=== PATIENT | male | born 1955 | race Caucasian/White ===

== ENCOUNTER 2019-11-11 09:48 | Emergency (ER) | payer OTHER ==
[~2019-11-11] VITALS: Ht 170.2 cm; Wt 81.6 kg
[2019-11-11 09:56] VITALS: BP 149/70
[2019-11-11] MEDS ORDERED: ONDANSETRON HCL/PF 4 MG/2 ML VIAL ONE (10:13)
[2019-11-11] MEDS ORDERED: CEFTRIAXONE 1GM BAG (ER ONLY) 0 ML IV ONE (10:13)
[2019-11-11] MEDS ORDERED: ACETAMINOPHEN ES 500 MG TABLET ONE (10:14)
[2019-11-11] MEDS ORDERED: CEFTRIAXONE 1GM BAG (ER ONLY) 1 GM/50 ML PIGGYBACK IV ONE (10:30)
[2019-11-11] MEDS ORDERED: IV NS 0.9% 1,000 ML BAG IV ONE (10:30)
[2019-11-11] MEDS ORDERED: ACETAMINOPHEN ES 500 MG TABLET PO ONE (10:30)
--- NOTE | 2019-11-11 10:30 | NUR ---
all orders cancelled as ordered by
--- NOTE | 2019-11-11 10:45 | NUR ---
Patient discharged to home in stable condition. Written and verbal after care instructions given. Patient verbalizes understanding of instruction.
== END 2019-11-11 10:45 | disposition home or self-care (01) ==
LOC: ER 09:53
DX: N41.9 Inflammatory disease of prostate, unspecified (principal); N39.0 Urinary tract infection, site not specified; I10 Essential (primary) hypertension; Z98.890 Other specified postprocedural states; Z60.2 Problems related to living alone
CPT/HCPCS: J0696; J2405; J7030

== ENCOUNTER 2019-11-13 05:18 | Emergency (ER) | payer OTHER ==
[~2019-11-13] VITALS: Ht 170.2 cm; Wt 95.3 kg
[2019-11-13 05:28] VITALS: BP 158/82
--- NOTE | 2019-11-13 05:36 | NUR ---
PT WAS BIBS TO THE ER FOR C/O URINARY FREQUENCY AND DYSURIA . PT REPORTED HE WAS SEEN AT [facility] ER , DIAGNOSED W/ UTI AND PROSTATITIS, GIVEN ATB AND DISCHARGED HOME. PT REPORTED HE WAS ABLE TO URINATE AN HOUR AGO. PT ALSO W/ C.O RECTAL PAIN DUE TO HEMORRHOID DESPITE USING PREPARATION H CREAM. PT AMBULATORY TO BED 4. VSS. WILL CONT TO MONITOR ,
--- NOTE | 2019-11-13 06:12 | NUR ---
Patient eloped from facility. ER MD notified.
[2019-11-13] MEDS ORDERED: TAMS-12 PO (09:06)
[2019-11-13] MEDS ORDERED: AMLO5TAB9 PO (09:06)
[2019-11-13] MEDS ORDERED: CYAN-51 PO (09:06)
[2019-11-13] MEDS ORDERED: CEPH500C2 PO (09:06)
[2019-11-13] MEDS ORDERED: CHOL20004 PO (09:06)
[2019-11-13] MEDS ORDERED: PARO20TA7 PO (09:06)
== END 2019-11-13 06:16 | disposition left against medical advice (07) ==
LOC: ER 05:18
DX: Z53.21 Procedure and treatment not carried out due to patient leaving prior to being seen by health care provider (principal); R10.30 Lower abdominal pain, unspecified; R30.0 Dysuria; R35.0 Frequency of micturition; I10 Essential (primary) hypertension; F32.9 Major depressive disorder, single episode, unspecified; Z98.890 Other specified postprocedural states

== ENCOUNTER 2019-11-13 08:43 | Emergency (ER) | payer OTHER ==
[~2019-11-13] VITALS: Ht 170.2 cm; Wt 94.8 kg
[2019-11-13 08:43] VITALS: BP 158/75
--- NOTE | 2019-11-13 09:01 | NUR ---
DR PIMENTEL AT BEDSIDE FOR EVAL
[2019-11-13] MEDS ORDERED: CHOL20004 PO (09:06)
[2019-11-13] MEDS ORDERED: CYAN-51 PO (09:06)
[2019-11-13] MEDS ORDERED: AMLO5TAB9 PO (09:06)
[2019-11-13] MEDS ORDERED: CEPH500C2 PO (09:06)
[2019-11-13] MEDS ORDERED: PARO20TA7 PO (09:06)
[2019-11-13] MEDS ORDERED: TAMS-12 PO (09:06)
--- NOTE | 2019-11-13 09:18 | NUR ---
PRESTON CATH INSERTED AND LEG BAG ATTACHED. DRAINING WELL.
--- NOTE | 2019-11-13 09:58 | NUR ---
Patient discharged to home in stable condition. Written and verbal after care instructions given. Patient verbalizes understanding of instruction.
[2019-11-13 10:03] LABS: APPEARANCE,URINE Clear (CLEAR); BILIRUBIN,URINE Negative (NEGATIVE); BLOOD, URINE Moderate Ery/uL (NEGATIVE); COLOR,URINE Yellow (YELLOW); KETONES,URINE Negative (NEGATIVE); LEUKOCYTE ESTERASE ,URINE Negative (NEGATIVE); NITRITE, URINE Negative (NEGATIVE); PH,URINE 5.5 (5.0-8.0); PROTEIN,URINE Negative (NEGATIVE); UGLUCOSE Negative (NEGATIVE); UROBILINOGEN,URINE 0.2 EU/dL (0.2)
[2019-11-13 10:18] LABS: RBC,URINE 21-50 /HPF (0-2)
[2019-11-13 10:19] LABS: BACTERIA,URINE None seen /HPF (None Seen); SQUAMOUS EPITHELIAL CELL,UR Few /HPF (None Seen); WBC,URINE 0-2 /HPF (0-3)
== END 2019-11-13 10:00 | disposition home or self-care (01) ==
LOC: ER 08:43
DX: R33.9 Retention of urine, unspecified (principal); I10 Essential (primary) hypertension; F32.9 Major depressive disorder, single episode, unspecified; N40.0 Benign prostatic hyperplasia without lower urinary tract symptoms; Z98.890 Other specified postprocedural states; Z60.2 Problems related to living alone; Z79.899 Other long term (current) drug therapy
CPT/HCPCS: 81000-TC; 87086-TC

== ENCOUNTER 2019-11-19 07:57 | Emergency (ER) | payer OTHER ==
[~2019-11-19] VITALS: Ht 170.2 cm; Wt 95.3 kg
[~2019-11-19 07:57] MED LIST: AMLO5TAB9 PO; CEPH500C2 PO; CHOL20004 PO; CYAN-51 PO; PARO20TA7 PO; TAMS-12 PO
--- NOTE | 2019-11-19 08:10 | NUR ---
[id number] HOME, UNABLE TO URINATE X 2 HOURS. F/C TAKEN OUT YESTERDAY. C/O 8/10 BLADDER PAIN. NO SOB. DENIES N/V. VS TAKEN. WARM BLANKET PLACED. WILL CONTINUE TO MONITOR.
--- NOTE | 2019-11-19 08:13 | NUR ---
INSERTED F/C WITH NO COMPLICATIONS, 800ML URINE OUT, CLEAR AND PALE YELLOW OUTPUT. PATIENT STATES HE FEELS RELIEF. WAITING TO BE SEEN BY MD.
--- NOTE | 2019-11-19 09:10 | NUR ---
PER MD PATIENT WILL GO HOME WITH PRESTON CATHETER AND PATIENT FOLLOW UP WITH HIS UROLOGIST. PER PATIENT HE WOULD LIKE TO GO HOME WITH ANTIBIOTICS, STATED LAST ANTIBIOTICS TAKEN DID NOT WORK FOR HIM. MADE AWARE.
--- NOTE | 2019-11-19 09:42 | NUR ---
PATIENT DISCHARGE WITH LEG BAG, DISCHARGE INSTRUCTIONS GIVEN. PATIENT IN STABLE CONDITION. AMBULATORY.
[2019-11-19 09:44] VITALS: BP 135/72
== END 2019-11-19 09:44 | disposition home or self-care (01) ==
LOC: ER 08:02
DX: R33.9 Retention of urine, unspecified (principal); I10 Essential (primary) hypertension; Z98.890 Other specified postprocedural states; Z60.2 Problems related to living alone; Z79.899 Other long term (current) drug therapy

== ENCOUNTER 2019-12-04 12:44 | Emergency (ER) | payer OTHER ==
[~2019-12-04] VITALS: Ht 170.2 cm; Wt 94.8 kg
[~2019-12-04 12:44] MED LIST changes: +CHOL200010 PO; -CHOL20004 PO
[2019-12-04 12:56] VITALS: BP 156/82
--- NOTE | 2019-12-04 14:22 | NUR ---
REMOVED PRESTON CATHETER PER DR. BAR'S ORDER, PT CLAUDETTE WELL. COVID19 TESTING DONE & SENT TO LAB.
== END 2019-12-04 14:25 | disposition home or self-care (01) ==
LOC: ER 12:47
DX: Z43.6 Encounter for attention to other artificial openings of urinary tract (principal); N40.0 Benign prostatic hyperplasia without lower urinary tract symptoms; I10 Essential (primary) hypertension; Z79.899 Other long term (current) drug therapy; F32.9 Major depressive disorder, single episode, unspecified; Z20.828 Contact with and (suspected) exposure to other viral communicable diseases
CPT/HCPCS: 99283; C9803; U0003

== ENCOUNTER 2019-12-05 03:54 | Emergency (ER) | payer OTHER ==
[~2019-12-05] VITALS: Ht 170.2 cm; Wt 94.8 kg
[2019-12-05 03:57] VITALS: BP 160/91
[2019-12-05] MEDS ORDERED: LIDOCAINE 2% JEL UROJET 10 ML MM ONE ×2 (04:08→04:30)
[2019-12-05 04:35] LABS: APPEARANCE,URINE SL CLOUDY (CLEAR); BILIRUBIN,URINE NEGATIVE (NEGATIVE); BLOOD, URINE MODERATE Ery/uL (NEGATIVE); COLOR,URINE YELLOW (YELLOW); KETONES,URINE 15 (NEGATIVE); LEUKOCYTE ESTERASE ,URINE LARGE (NEGATIVE); NITRITE, URINE POSITIVE (NEGATIVE); PROTEIN,URINE 100 mg/dl (NEGATIVE); UGLUCOSE NEGATIVE (NEGATIVE); UROBILINOGEN,URINE 0.2 EU/dL (0.2)
--- NOTE | 2019-12-05 04:44 | NUR ---
850ML URINE OUTPUT
[2019-12-05 04:49] LABS: BACTERIA,URINE Moderate /HPF (None Seen); SQUAMOUS EPITHELIAL CELL,UR Rare /HPF (None Seen); WBC,URINE TOO NUMEROUS TO COUN /HPF (0-3)
== END 2019-12-05 05:33 | disposition home or self-care (01) ==
LOC: ER 03:59
DX: N39.0 Urinary tract infection, site not specified (principal); R33.9 Retention of urine, unspecified; I10 Essential (primary) hypertension; Z98.890 Other specified postprocedural states; Z60.2 Problems related to living alone; Z79.899 Other long term (current) drug therapy
CPT/HCPCS: 51702; 81001; 87086; 99284; J3490; 81000-TC; 87186-TC

== ENCOUNTER 2019-12-12 05:16 | Emergency (ER) | payer OTHER ==
[~2019-12-12] VITALS: Ht 170.2 cm; Wt 90.7 kg
[2019-12-12] MEDS ORDERED: LIDOCAINE 2% JEL UROJET 10 ML MM ONE (05:23)
[2019-12-12 05:25] VITALS: BP 145/83
--- NOTE | 2019-12-12 05:30 | NUR ---
PATIENT CAME TO ER BED 7 C/O URINARY RETENTION. PATIENT STATES THAT HE WANTS A LEG BAG. AAOX4. NO SOB .BREATHING EVENLY AND UNLABORED ON ROOM AIR.
--- NOTE | 2019-12-12 05:36 | NUR ---
PRESTON CATHETER 16 FR INSERTED INTO THE PENIS.
[2019-12-12 05:57] LABS: APPEARANCE,URINE CLEAR (CLEAR); BILIRUBIN,URINE NEGATIVE (NEGATIVE); BLOOD, URINE SMALL Ery/uL (NEGATIVE); COLOR,URINE YELLOW (YELLOW); KETONES,URINE NEGATIVE (NEGATIVE); LEUKOCYTE ESTERASE ,URINE SMALL (NEGATIVE); NITRITE, URINE NEGATIVE (NEGATIVE); PROTEIN,URINE NEGATIVE (NEGATIVE); UGLUCOSE NEGATIVE (NEGATIVE); UROBILINOGEN,URINE 0.2 EU/dL (0.2)
--- NOTE | 2019-12-12 07:08 | NUR ---
PATIENT CHANGED INTO A LEG BAG. TOTAL AMOUNT OF URINE IN THE PRESTON CATHETER BAG 2L OF URINE
--- NOTE | 2019-12-12 07:08 | NUR ---
Patient discharged to home in stable condition. Written and verbal after care instructions given. Patient verbalizes understanding of instruction.
== END 2019-12-12 07:09 | disposition home or self-care (01) ==
LOC: ER 05:20
DX: R33.9 Retention of urine, unspecified (principal); I10 Essential (primary) hypertension; Z98.890 Other specified postprocedural states; Z60.2 Problems related to living alone; Z79.899 Other long term (current) drug therapy
CPT/HCPCS: 51702; 81001; 99284; J3490; 81000-TC

== ENCOUNTER 2022-11-24 03:51 | Emergency (ER) | payer MEDICARE, OTHER ==
[~2022-11-24] VITALS: Ht 175.3 cm; Wt 86.2 kg
[~2022-11-24 03:51] MED LIST changes: +AMLO-212 PO; -AMLO5TAB9 PO; +CIPR500T5 PO; +IBUP-1953 PO; +TYL2T PO
[2022-11-24] MEDS ORDERED: LIDOCAINE 2% JEL UROJET 10 ML MM ONE ×2 (03:55→04:00)
[2022-11-24 04:52] LABS: APPEARANCE,URINE CLEAR (CLEAR); BILIRUBIN,URINE NEGATIVE (NEGATIVE); BLOOD, URINE TRACE-INTA Ery/uL (NEGATIVE); COLOR,URINE YELLOW (YELLOW); KETONES,URINE NEGATIVE (NEGATIVE); LEUKOCYTE ESTERASE ,URINE NEGATIVE (NEGATIVE); NITRITE, URINE NEGATIVE (NEGATIVE); PH,URINE 5.5 (5.0-8.0); PROTEIN,URINE NEGATIVE (NEGATIVE); UGLUCOSE NEGATIVE (NEGATIVE); UROBILINOGEN,URINE 0.2 EU/dL (0.2)
[2022-11-24 04:59] VITALS: TEMP 98.3
[2022-11-24 05:21] VITALS: BP 140/79; O2SAT 98
== END 2022-11-24 05:22 | disposition home or self-care (01) ==
LOC: ER 03:56
DX: R33.9 Retention of urine, unspecified (principal); I10 Essential (primary) hypertension; F32.A Depression, unspecified; Z79.899 Other long term (current) drug therapy; Z60.2 Problems related to living alone
CPT/HCPCS: 99284; 51702; 81003; J3490

== ENCOUNTER 2025-03-16 17:37 | Emergency (ER) | payer MEDICARE, OTHER ==
[~2025-03-16] VITALS: Ht 172.7 cm; Wt 82.6 kg
[2025-03-16 18:10] VITALS: BP 149/77; TEMP 98.1; O2SAT 97
[2025-03-16] MEDS ORDERED: DICL100G26 TP (19:30)
[2025-03-16] MEDS ORDERED: ACET325C7 PO (19:30)
[2025-03-16] MEDS ORDERED: IBUP-1955 PO (19:30)
== END 2025-03-16 19:39 | disposition home or self-care (01) ==
LOC: ER 17:42
DX: M19.041 Primary osteoarthritis, right hand (principal); I10 Essential (primary) hypertension; F32.A Depression, unspecified; Z91.048 Other nonmedicinal substance allergy status; Z79.899 Other long term (current) drug therapy
CPT/HCPCS: 73130-TC